=== PATIENT | female | born 1965 | race Caucasian/White ===

== ENCOUNTER → 2016-06-09 | Outpatient (CLI) | payer MEDICARE, BC ==
--- NOTE | 2016-06-10 11:02 | US ---
EXAMINATION TYPE: US pelvis complete transvag DATE OF EXAM: 06/09/2016 4:11 PM COMPARISON: Pelvic ultrasound July 16, 2015 CLINICAL HISTORY: Other Ovarian Cyst R Side N83.291. patient stated has elevated CA125; on blood thin ner for prior PE; had endometrial ablation last year but still has menses; stated had prior uterine f ibroids removed as well as ovarian cyst; TECHNIQUE: Transvaginal (TV) and Transabdominal (TA) pelvic ultrasound. Date of LMP: 05/30/2016 EXAM MEASUREMENTS: Uterus: 10.3 x 6.8 x 5.5 cm Endometrial Stripe: borders are not well identified Right Ovary: 3.0 x 3.4 x 2.0 cm Left Ovary: 1.8 x 1.1 x 2.4 cm TECHNOLOGIST IMPRESSION: wnl 1. Uterus: Anteverted; small Nabothian cysts in CX with largest~ 0.3 x 0.4 x 0.5cm; right mid myom etrial fibroid = 1.0 x 0.9 x 0.5cm; cystic area noted left lateral myometrium = 0.4 x 0.8 x 0.3cm 2. Endometrium: hyperechoic focus noted mid endometrial level = 0.5 x 0.2 x 0.2cm; borders are not w ell identified with endometrial ablation history; however, on image #45 thickened area isoechoic to m yometrium could be current endometrium; 3. Right Ovary: couple of follicles with largest =1.5 x 1.3 x 1.2cm 4. Left Ovary: largest follicle = 0.6 x 0.5 x 0.5cm 5. Bilateral Adnexa: wnl 6. Posterior cul-de-sac: wnl There is 1 cm heterogeneous hypoechoic lesion in uterine myometrium felt to reflect intramural fibroi d. Small endometrial cyst is marked by technologist. Distinct endometrial stripe is not well-visualiz ed after interval ablation. IMPRESSION: No worrisome adnexal or ovarian mass identified. Improvement in heterogeneous prominent e ndometrium after ablation. Slightly bulky uterus remains present.
== END | disposition home or self-care (01) ==
LOC: RADUSWWP 15:28
PROVIDERS: ATTEND Family Medicine
DX: N83.291 Other ovarian cyst, right side (principal)
CPT/HCPCS: 76830; 76856

== ENCOUNTER 2016-06-20 17:52 | Emergency (ER) | payer MEDICARE, BC ==
[2016-06-20 18:24] VITALS: BP 103/62; PULSE 92; RESP 18; TEMP 97.4
--- NOTE | 2016-06-20 19:04 | XR ---
EXAMINATION TYPE: XR foot complete LT DATE OF EXAM: 06/20/2016 6:53 PM COMPARISON: NONE HISTORY: Fell down the steps TECHNIQUE: 3 views FINDINGS: Metatarsals are intact. I see no fracture nor dislocation. IMPRESSION: Negative left foot exam.
--- NOTE | 2016-06-20 19:35 | ED ---
General Adult HPI - General Chief complaint: Extremity Injury, Lower Stated complaint: left foot injury Source: patient Mode of arrival: ambulatory Limitations: no limitations - History of Present Illness Initial comments: This is a 50-year-old female presents with left foot pain started around 8:30 today. Patient states she slipped down 4 steps rolling her left foot. Patient denies any left ankle pain and has been able to ambulate without difficulty. Patient has noticed some mild swelling to the lateral aspect of the left foot. patient Did not hit her head or lose consciousness. Patient denies any back pain, loss of bowel or bladder function, urinary retention or loss of sensation to the saddle area. Patient states she is on an anticoagulant. Patient denies any recent fever, chills, shortness breath, chest pain, abdominal pain, nausea/ vomiting/diarrhea, back pain, hematuria, headache, or visual changes, or any other complaints. - Related Data Home Medications Medication Instructions Recorded Confirmed Baclofen 10 mg PO HS 05/13/15 06/20/16 Cholecalciferol [Vitamin D3] 1,000 unit PO HS 05/13/15 06/20/16 Cyanocobalamin [Vitamin B-12] 1,000 mcg PO HS 05/13/15 06/20/16 Melatonin 30 mg PO HS 05/13/15 06/20/16 Milnacipran HCl [Savella] 100 mg PO BID 05/13/15 06/20/16 Orphenadrine [Norflex] 100 mg PO Q12H 05/13/15 06/20/16 Topiramate [Topamax] 200 mg PO BID 05/13/15 06/20/16 oxyCODONE-APAP 7.5-325MG [Percocet 1 tab PO Q6HR PRN 05/13/15 06/20/16 7.5-325 mg] SUMAtriptan SUCCINATE [Imitrex] 100 mg PO DAILY PRN 09/04/15 06/20/16 Buta/APAP/Caf/Cod 30-275-71-30 1 cap PO BID PRN 01/20/16 06/20/16 [Fioricet w/Cod 88-851-66-30MG] Gabapentin [Neurontin] 100 mg PO HS 01/20/16 06/20/16 Ibuprofen [Motrin] 800 mg PO BID PRN 01/20/16 06/20/16 Apixaban [Eliquis] 2.5 mg PO BID 06/20/16 06/20/16 Azithromycin [Zithromax Z-pack] See Taper PO DAILY 06/20/16 06/20/16 Pravastatin Sodium [Pravachol] 80 mg PO DAILY 06/20/16 06/20/16 Propranolol HCl [Inderal LA] 80 mg PO DAILY 06/20/16 06/20/16 clonazePAM [KlonoPIN] 3 mg PO HS 06/20/16 06/20/16 Allergies Allergy/AdvReac Type Severity Reaction Status Date / Time Penicillins Allergy Rash/Hives Verified 06/20/16 19:08 Review of Systems ROS Statement: Those systems with pertinent positive or pertinent negative responses have been documented in the HPI. ROS Other: All systems not noted in ROS Statement are negative. Past Medical History Past Medical History: Deep Vein Thrombosis (DVT), Fibromyalgia, GERD/Reflux, Hyperlipidemia, Pulmonary Embolus (PE) Additional Past Medical History / Comment(s): migraines, right knee surgery 15 times, MTHFR History of Any Multi-Drug Resistant Organisms: None Reported Past Surgical History: Adenoidectomy, Appendectomy, Orthopedic Surgery, Tonsillectomy Additional Past Surgical History / Comment(s): right knee, ovarian cyst removed , nisssan Past Anesthesia/Blood Transfusion Reactions: No Reported Reaction Past Psychological History: No Psychological Hx Reported Smoking Status: Former smoker Past Alcohol Use History: None Reported Past Drug Use History: None Reported - Past Family History Mother History Unknown: Yes Family Medical History: Diabetes Mellitus General Exam - General Exam Comments Initial Comments: General: The patient is awake and alert, in no distress, and does not appear acutely ill. Neck: The neck is supple, there is no tenderness or JVD. Cardiovascular: There is a regular rate and rhythm. No murmur, rub or gallop is appreciated. Respiratory: Lungs are clear to auscultation, respirations are non-labored, breath sounds are equal. No wheezes, stridor, rales, or rhonchi. Musculoskeletal: There is mild tenderness to palpation over the anterolateral aspect of the left foot with mild swelling and faint ecchymosis. Patient has mild tenderness to the lateral aspect of the left foot. No tenderness to palpation over the lateral or medial malleoli of the left ankle. Full range of motion, strength 5/5 and Sensation intact. Dorsalis pedis pulses 2+ bilaterally. Neurological: A&O x 3. CN II-XII intact, There are no obvious motor or sensory deficits. Coordination appears grossly intact. Speech is normal. Skin: Skin is warm and dry and no rashes or lesions are noted. Psychiatric: Normal mood and affect. Limitations: no limitations Course Vital Signs 06/20/16 18:20 Temperature 97.4 F L Pulse Rate 92 Respiratory 18 Rate Blood Pressure 103/62 O2 Sat by Pulse 98 Oximetry Medical Decision Making - Medical Decision Making Is a 50-year-old female presents with left foot pain that started around 8:30 after rolling her foot on stairs. On physical exam There is mild tenderness to palpation over the anterolateral aspect of the left foot with mild swelling and faint ecchymosis. Patient has mild tenderness to the lateral aspect of the left foot. No tenderness to palpation over the lateral or medial malleoli of the left ankle. Full range of motion, strength 5/5 and Sensation intact. Dorsalis pedis pulses 2+ bilaterally. An x-ray of the left foot was done and reviewed showing: Negative left foot exam. Reported by Dr. Acosta. I discussed the results with patient. I discussed foot sprains. I discussed rest , ice, elevate and use Jaspreet wrap for compression. Patient has crutches at home if needed. I discussed range of motion exercises to the left foot and ankle. I discussed that patient should monitor her swelling since she is on blood thinners but there is only mild swelling right now. I discussed over-the- counter Tylenol as needed for any pain. I discussed return parameters. I discussed If symptoms do not improve in the next 7 days repeat x-rays may be needed to rule out occult fracture. Discussed that patient should follow up with PCP in one to 2 days or return to the [facility] for any worsening symptoms or for any further concerns. Patient was receptive to this plan and patient will be discharged home. I discussed his case with attending physician Dr. Arce who agrees the plan as stated above. Disposition Clinical Impression: Sprain of left foot Disposition: HOME SELF-CARE Condition: Good Instructions: Foot Sprain (ED) Additional Instructions: Please rest, ice, elevate and use the Jaspreet wrap for compression. Please use the crutches you have at home if needed until pain subsides. Otherwise weight bearing as tolerated. If symptoms do not improve in the next 7 days repeat x- rays may be needed to rule out occult fracture. Please use [id number] Tylenol as needed for any pain. Please use medication as discussed. Please follow-up with family doctor in the next 2 days of symptoms have not improved. Please return to emergency room if the symptoms increase or worsen or for any other concerns. Referrals: Jia Buchanan MD [Primary Care Provider] - 1-2 days Time of Disposition: 19:37
== END 2016-06-20 19:41 | disposition home or self-care (01) ==
LOC: EC 17:52
DX: S93.602A Unspecified sprain of left foot, initial encounter (principal); M79.7 Fibromyalgia; K21.9 Gastro-esophageal reflux disease without esophagitis; E78.5 Hyperlipidemia, unspecified; Z86.718 Personal history of other venous thrombosis and embolism; Z87.891 Personal history of nicotine dependence; Z79.899 Other long term (current) drug therapy; Z88.0 Allergy status to penicillin; W10.9XXA Fall (on) (from) unspecified stairs and steps, initial encounter; Y92.009 Unspecified place in unspecified non-institutional (private) residence as the place of occurrence of the external cause; X50.1XXA Overexertion from prolonged static or awkward postures, initial encounter
CPT/HCPCS: 99283

== ENCOUNTER → 2017-01-02 | Outpatient (CLI) | payer MEDICARE, BC ==
--- NOTE | 2017-01-02 14:07 | US ---
EXAMINATION TYPE: US abdomen complete DATE OF EXAM: 01/02/2017 COMPARISON: NONE CLINICAL HISTORY: R10.9 abd pain. Difficult/limited exam due to overlying bowel gas EXAM MEASUREMENTS: Liver Length: 16.3 cm Gallbladder Wall: 0.2 cm CBD: 0.8 cm Spleen: 8.0 cm Right Kidney: 10.7 x 4.9 x 4.2 cm Left Kidney: 11.2 x 6.1 x 5.7 cm Pancreas: Obscured by bowel gas Liver: Limited visualization due to bowel gas, visualized portions show no mass Gallbladder: Multiple echogenic foci visualized Evidence for sonographic Jara's sign: No CBD: Dilated. Distal portion is obscured by bowel gas Spleen: wnl as visualized, limited visualization due to bowel gas Right Kidney: No hydronephrosis or masses seen Left Kidney: No hydronephrosis or masses seen Upper IVC: wnl Abd Aorta: wnl IMPRESSION: 1. Cholelithiasis and enlargement of the common bile duct with no pericholecystic fluid, gallbladder wall thickening, or positive sonographic Jara sign to support the diagnosis of acute cholecystitis. HIDA scan or MRCP could be performed for further evaluation. 2. Nonvisualization of the pancreas due to overlying bowel gas.
--- NOTE | 2017-01-02 14:18 | US ---
EXAMINATION TYPE: US transvaginal DATE OF EXAM: 01/02/2017 COMPARISON: Prior in PACS. CLINICAL HISTORY: R10.9 abd pain. History of ablation. TECHNIQUE: Transvaginal (TV) Date of LMP: 3 months ago EXAM MEASUREMENTS: Uterus: 7.6 x 5.1 x 6.2 cm Endometrial Stripe: 0.6 cm Right Ovary: 2.2 x 1.1 x 1.2 cm Left Ovary: 3.9 x 2.2 x 2.3 cm 1. Uterus: Retroverted Nabothian cysts visualized in cervix. Cystic area visualized in myometrium me asuring 0.6 x 0.3 x 0.5 cm. Heterogeneous area visualized in right myometrium measuring 3.3 x 2.3 x 2 .9 cm, most likely representing intramural leiomyoma 2. Endometrium: Borders are not well visualized, does not appear thickened as seen on previous exam 3. Right Ovary: wnl as visualized, difficult visualization due to bowel gas 4. Left Ovary: Multiple cystic areas visualized, largest measures 2.3 x 1.9 x 2.3 cm 5. Bilateral Adnexa: wnl 6. Posterior cul-de-sac: Small amount of free fluid visualized IMPRESSION: 1. Endometrial borders do not appear well-defined, however no abnormal thickening is appreciated, pos t ablation. 2. Dominant left ovarian follicle measuring 2.3 cm appearing simple. 3. Probable 3.3 cm intramural leiomyoma.
--- NOTE | 2017-01-02 15:06 | NM ---
EXAMINATION TYPE: NM hepatobiliary w EF DATE OF EXAM: 01/02/2017 COMPARISON: Abdominal ultrasound dated 12/25/2016 HISTORY: Abdominal pain and decreased appetite. Constipation, diarrhea and history of ulcers. TECHNIQUE: After the intravenous administration of 5.16 mCi Tc 99m Mebrofenin hepatobiliary scintigra phy is performed. Immediate images post injection. FINDINGS: There is satisfactory initial accumulation of tracer by the liver. The gallbladder is visualized wit hin 14 minutes. The small bowel activity is noted within 60 minutes. At one hour 8 ounces of oral e nsure plus is given to mimic CCK and gallbladder ejection fraction is calculated at 85 %, in the norm al range. Therefore there is no scintigraphic evidence of cystic or common bile duct obstruction to suggest acute cholecystitis or gallbladder dyskinesia. IMPRESSION: 1. No evidence of acute cholecystitis. 2. No evidence of biliary dyskinesia with an ejection fraction of 85%.
== END | disposition home or self-care (01) ==
LOC: RADUSMAIN 11:41
PROVIDERS: ATTEND Family Medicine
DX: K80.20 Calculus of gallbladder without cholecystitis without obstruction (principal); K83.8 Other specified diseases of biliary tract; R97.0 Elevated carcinoembryonic antigen [CEA]
CPT/HCPCS: 76700; 76830; 78226; A9537

== ENCOUNTER 2017-02-08 06:59 | Day surgery (SDC) | payer MEDICARE, BC ==
[2017-02-07 09:23] VITALS: BMI 32.5
[~2017-02-08 06:59] MED LIST: DEXAMETHASONE SOD PHOSPHATE 10 MG/ML 1 ML VIAL IV ONE; HEPARIN SODIUM,PORCINE 5,000 UNIT/ML 1 ML VIAL SQ ONE; LACTATED RINGERS 1,000 ML IV SCH; LIDOCAINE 1% 20 ML VIAL (10MG/ML) FOR IV START INTRADERMA PRN; ONDANSETRON 4 MG/2 ML VIAL IVP ONE; SCOPOLAMINE 1.5MG/72HR PATCH TRANSDERM ONE; ceFAZolin 2 GM in SODIUM CHLORIDE 0.9% 100 ML IVPB ONE
[2017-02-08 07:24] VITALS: RESP 16
[2017-02-08] MEDS ORDERED: BUPIVACAINE (PF) 0.25% 30 ML VIAL SQ ONE ×2 (08:22)
[2017-02-08] MEDS ORDERED: fentaNYL (PF) 50 MCG/ML 2 ML AMP ONE (08:26)
[2017-02-08] MEDS ORDERED: SUCCINYLCHOLINE CHLORIDE 100 MG/5 ML SYR IV ONE (08:26)
[2017-02-08] MEDS ORDERED: PROPOFOL 10 MG/ML 20 ML VIAL IV ONE (08:26)
[2017-02-08] MEDS ORDERED: HYDROmorphone (PF) 1 MG/ML ONE (08:26)
[2017-02-08] MEDS ORDERED: ROCURONIUM BROMIDE 10 MG/ML 10 ML VIAL IV ONE (08:26)
[2017-02-08] MEDS ORDERED: LIDOCAINE 1% INJ 10MG/ML (20 ML MDV) ONE (08:26)
[2017-02-08] MEDS ORDERED: LACTATED RINGERS 1,000 ML IV ONE ×2 (08:50)
[2017-02-08] MEDS ORDERED: NALOXONE 0.4 MG/ML 1 ML VIAL IV PRN (09:23)
[2017-02-08] MEDS ORDERED: HYDROcodone/APAP 5-325MG 1 EACH TAB PO PRN (09:23)
[2017-02-08 09:26] VITALS: TEMP 97.5
--- NOTE | 2017-02-08 09:31 | P.OP ---
Date of Procedure: 02/08/17 Procedure(s) Performed: PREOPERATIVE DIAGNOSIS: Chronic cholecystitis POSTOPERATIVE DIAGNOSIS: Same with intra-abdominal adhesions PROCEDURE: Laparoscopic cholecystectomy with lysis of adhesions SURGEON: Judy EBL: Minimal see anesthesia record ANESTHESIA: Gen. COMPLICATIONS: None OPERATIVE PROCEDURE: The patient was brought and placed on the operating room table in the supine position. The patient was placed under general anesthesia at that time. The abdomen was prepped and draped in the usual sterile fashion. A small vertical infraumbilical incision was made. The fascia was grasped with the Samuel forceps. The fascia was retracted anteriorly. The Veress needle was advanced into the peritoneal cavity. The saline drop test was normal. Insufflation took place up to 15 mmHg. A 5 mm optical trocar was advanced and the peritoneal cavity. The patient had adhesions between the omentum and the abdominal wall. I was unable to visualize the upper abdomen because of the adhesions. An additional 5 mm trocar was placed in the lateral aspect of the left upper quadrant and the adhesions to the omentum were lysed using a combination of sharp dissection and cautery. I was then able to visualize the right upper quadrant. The gallbladder appeared mildly inflamed. I did use the left-sided trocar to inspect the pelvis. The right and left ovaries had some cysts associated with the fallopian tubes however I could not visualize any definite masses. Pictures were taken for gynecology to review. These were provided to the family following the procedure. There was no ascitic fluid within the abdomen there was no peritoneal implants seen. 2 additional 5 mm trochars were placed in the right upper quadrant under direct visualization. A 10 mm trocar was advanced into the epigastric incision site. The gallbladder was retracted superiorly and laterally. The peritoneum overlying the infundibulum was bluntly dissected. The patient's cystic duct was visualized. The junction between the cystic duct common and hepatic duct was identified. The cystic duct was then divided after placement of 3 10 mm clips on the patient's side and one on the specimen side. The cystic artery was identified and clipped as well. A small vessel was seen along the gallbladder fossa and clipped as well. The gallbladder was then removed from the liver bed using electrocautery. The gallbladder was then removed from the epigastric trocar site with an Endo Catch bag. The gallbladder fossa was irrigated with saline. There was no evidence of any bleeding or biliary drainage seen. The trochars were then removed. The fascia at the 10 millimeter site was closed using a Сергей-Makenzie 0 Vicryl stitch. The skin at all 5 sites was closed using a 4-0 Monocryl stitch. At the end of this procedure the sponge and needle counts were correct. DISPOSITION: Stable to the recovery room
[2017-02-08] MEDS: HYDROmorphone 0.5 MG/0.5 ML SYRINGE IVP PRN ×3 (09:32→09:46)
[2017-02-08] MEDS ORDERED: HYDROcodone/APAP 5-325MG 1 EACH TAB PO ONE (10:23)
[2017-02-08 10:36] VITALS: BP 122/73; PULSE 57
== END 2017-02-08 11:14 | disposition home or self-care (01) ==
LOC: OR 06:59
PROVIDERS: ATTEND Surgery
DX: K81.1 Chronic cholecystitis (principal); K66.0 Peritoneal adhesions (postprocedural) (postinfection); E78.5 Hyperlipidemia, unspecified; K21.9 Gastro-esophageal reflux disease without esophagitis; M79.7 Fibromyalgia; D68.2 Hereditary deficiency of other clotting factors; Z79.02 Long term (current) use of antithrombotics/antiplatelets; Z79.899 Other long term (current) drug therapy; Z86.711 Personal history of pulmonary embolism; Z86.718 Personal history of other venous thrombosis and embolism; Z88.0 Allergy status to penicillin
CPT/HCPCS: 47562; 49329; 81025; 88304; J1644; J1100; J0690; J2405; J2001; J3010; J1170 ×2; J0330; J2704

== ENCOUNTER → 2017-05-23 | Outpatient (CLI) | payer MEDICARE, BC ==
[2017-05-23 13:29] LABS: Basophils % (A) 1 %; Eosinophils # (A) 0.2 k/uL (0-0.7); Eosinophils % (A) 3 %; HCT 45.9 % (34.0-46.0); HGB 14.4 gm/dL (11.4-16.0); Lymphocytes # (A) 2.3 k/uL (1.0-4.8); Lymphocytes % (A) 36 %; MCH 30.9 pg (25.0-35.0); MCHC 31.4 g/dL (31.0-37.0); MCV 98.3 fL (80.0-100.0); Monocytes # (A) 0.2 k/uL (0-1.0); Monocytes % (A) 3 %; Neutrophils # (A) 3.6 k/uL (1.3-7.7); Neutrophils % (A) 57 %; Platelet Count 319 k/uL (150-450); RBC 4.67 m/uL (3.80-5.40); RDW 14.1 % (11.5-15.5); WBC 6.4 k/uL (3.8-10.6)
[2017-05-23 13:54] LABS: Anion Gap 10 mmol/L; Blood Urea Nitrogen 14 mg/dL (7-17); Carbon Dioxide 24 mmol/L (22-30); Chloride 107 mmol/L (98-107); Glucose 130 mg/dL (74-99); Potassium 4.1 mmol/L (3.5-5.1); Sodium 141 mmol/L (137-145)
== END | disposition home or self-care (01) ==
LOC: LABPAT 12:18
PROVIDERS: ATTEND Obstetrics & Gynecology
DX: Z01.812 Encounter for preprocedural laboratory examination (principal); R10.2 Pelvic and perineal pain; N93.8 Other specified abnormal uterine and vaginal bleeding; Z79.899 Other long term (current) drug therapy
CPT/HCPCS: 36415; 80051; 82565; 82947; 84520; 85025; 86850; 86900; 86901; 87086

== ENCOUNTER → 2017-05-23 | Outpatient (CLI) | payer MEDICARE, BC ==
--- NOTE | 2017-05-23 13:39 | XR ---
EXAMINATION TYPE: XR chest 2V DATE OF EXAM: 05/23/2017 COMPARISON: 05/13/2015 HISTORY: Shortness of breath TECHNIQUE: Frontal and lateral views of the chest are obtained. FINDINGS: Scattered senescent parenchymal changes noted. No evidence for infiltrate. No evidence for atelectasis. Heart size is stable. Mediastinal structures are stable and grossly unremarkable. No evidence for hilar prominence. Degenerative changes dorsal spine. IMPRESSION: 1. No evidence for acute pulmonary disease.
== END | disposition home or self-care (01) ==
LOC: RADXRMAIN 13:21
PROVIDERS: ATTEND Family Medicine
DX: Z01.818 Encounter for other preprocedural examination (principal)
CPT/HCPCS: 71046

== ENCOUNTER 2017-05-29 05:49 | Day surgery (SDC) | payer MEDICARE, BC ==
[2017-05-22 14:07] VITALS: BMI 31.0
[~2017-05-29 05:49] MED LIST changes: -LIDOCAINE 1% 20 ML VIAL (10MG/ML) FOR IV START INTRADERMA PRN; +MIDAZOLAM 2 MG/2 ML VIAL IV PRN; +MORPHINE SULFATE 4 MG/ML SYRINGE IV PRN; -ONDANSETRON 4 MG/2 ML VIAL IVP ONE; -ceFAZolin 2 GM in SODIUM CHLORIDE 0.9% 100 ML IVPB ONE; +ceFAZolin IN SWFI 2 GM/20 ML SYRINGE IVP ONE
[2017-05-29] MEDS ORDERED: LIDOCAINE 1% 20 ML VIAL (10MG/ML) FOR IV START INTRADERMA ONE (07:00)
[2017-05-29] MEDS: ONDANSETRON 4 MG/2 ML VIAL IVP ONE ×2 (07:00→10:20)
[2017-05-29 07:13] LABS: INR 1.1 (<1.2); Prothrombin Time 10.5 sec (9.0-12.0)
--- NOTE | 2017-05-29 07:27 | P.HPOB ---
History of Present Illness H&P Date: 05/29/17 Chief Complaint: Pelvic pain and dysfunctional uterine bleeding This is a 51-year-old woman with a history of worsening on pelvic pain and dysfunctional uterine bleeding status post failed endometrial ablation. She desires definitive surgical management. She also has a history of ovarian cysts. On pelvic ultrasound her uterus is slightly enlarged and findings consistent with adenomyosis Review of Systems Constitutional: Denies chills, Denies fever Cardiovascular: Denies chest pain, Denies shortness of breath Respiratory: Denies cough Gastrointestinal: Reports abdominal pain, Denies BRBPR Genitourinary: Reports abnormal vaginal bleeding, Reports pelvic pain Menstruation: Reports as per HPI Musculoskeletal: Reports low back pain Integumentary: Denies rash Neurological: Denies headaches Psychiatric: Denies anxiety, Denies depression Past Medical History Past Medical History: Blood Disorder, Deep Vein Thrombosis (DVT), Fibromyalgia, GERD/Reflux, Hyperlipidemia, Osteoarthritis (OA), Pulmonary Embolus (PE) Additional Past Medical History / Comment(s): migraines, Factor 5 Leiden, barretts esophagus, IBS-constipation/diarrhea, History of Any Multi-Drug Resistant Organisms: None Reported Past Surgical History: Adenoidectomy, Appendectomy, Cholecystectomy, Joint Replacement, Orthopedic Surgery, Tonsillectomy, Tubal Ligation, Uterine Ablation Additional Past Surgical History / Comment(s): shelby fundoplication "wrap", rt knee replacement, left breast lumpectomy, cysts removed from ovaries, mult esvin knee surgeries, Past Anesthesia/Blood Transfusion Reactions: No Reported Reaction Smoking Status: Former smoker - Past Family History Mother History Unknown: Yes Family Medical History: No Reported History Medications and Allergies Home Medications Medication Instructions Recorded Confirmed Type Baclofen 10 mg PO HS 05/13/15 05/22/17 History Cholecalciferol [Vitamin D3] 1,000 unit PO HS 05/13/15 05/22/17 History Cyanocobalamin [Vitamin B-12] 1,000 mcg PO HS 05/13/15 05/22/17 History Melatonin 30 mg PO HS 05/13/15 05/22/17 History Orphenadrine [Norflex] 100 mg PO Q12H 05/13/15 05/22/17 History Topiramate [Topamax] 200 mg PO BID 05/13/15 05/22/17 History oxyCODONE-APAP 7.5-325MG [Percocet 1 tab PO Q6HR PRN 05/13/15 05/22/17 History 7.5-325 mg] SUMAtriptan SUCCINATE [Imitrex] 100 mg PO DAILY PRN 09/04/15 05/29/17 History Buta/APAP/Caf/Cod 15-362-85-30 1 cap PO BID PRN 01/20/16 05/29/17 History [Fioricet w/Cod 30-409-75-30MG] Ibuprofen [Motrin] 800 mg PO BID PRN 01/20/16 05/22/17 History Apixaban [Eliquis] 2.5 mg PO BID 06/20/16 05/22/17 History Pravastatin Sodium [Pravachol] 80 mg PO HS 06/20/16 05/22/17 History clonazePAM [KlonoPIN] 3 mg PO HS 06/20/16 05/22/17 History Omeprazole [PriLOSEC] 20 mg PO AC-BRKFST 02/07/17 05/22/17 History Propranolol HCl [Inderal] 60 mg PO BID 02/07/17 05/22/17 History Enoxaparin [Lovenox] 60 mg SQ DAILY 05/23/17 05/23/17 History Allergies Allergy/AdvReac Type Severity Reaction Status Date / Time Penicillins Allergy Rash/Hives Verified 05/29/17 06:18 Exam - Vital Signs Vital signs: Vital Signs Temp Pulse Resp BP Pulse Ox 05/29/17 07:00 97.4 F L 66 16 119/73 100 This is a pleasant female in no apparent distress. HEENT exam is unremarkable with no palpable lymphadenopathy or thyromegaly. The lungs are clear to auscultation bilaterally and the heart is a regular rate and rhythm. The abdomen is soft and nontender with scarring consistent with her surgical history. Pelvic examination was not performed at this time however in the past is consistent with an enlarged, 6-8 week size uterus with generalized tenderness. No adnexal abnormalities appreciated. Neurologic exam she is grossly intact with no focal deficits. Assessment and Plan (1) Dysfunctional uterine bleeding Current Visit: Yes Status: Acute Code(s): N93.8 - OTHER SPECIFIED ABNORMAL UTERINE AND VAGINAL BLEEDING SNOMED Code(s): 42174011 (2) Pelvic pain Current Visit: Yes Status: Acute Code(s): R10.2 - PELVIC AND PERINEAL PAIN SNOMED Code(s): 40700622 Plan: This is a 51-year-old woman with dysfunctional uterine bleeding and pelvic pain who is scheduled to undergo robotic-assisted laparoscopic assisted vaginal hysterectomy and bilateral salpingo-oophorectomy and cystoscopy. This procedure has been reviewed in detail in the office on multiple occasions. Risks include but are not limited to bleeding, transfusion, laparotomy, infection, damage to bowel, bladder, ureters and/or other pelvic or abdominal structures. Anesthetic complications as well as increased risk of DVT and or PE have been reviewed. She did receive preoperative clearance from Dr. Velasquez. She has transitioned to Lovenox her last dose of which was yesterday. She will receive DVT prophylaxis intraoperatively as well and Lovenox will be resumed postoperatively.
[2017-05-29] MEDS ORDERED: ePHEDrine 50 MG/ML 1 ML AMP ONE (07:34)
[2017-05-29] MEDS ORDERED: PROPOFOL 10 MG/ML 20 ML VIAL IV ONE (07:34)
[2017-05-29] MEDS ORDERED: GLYCOPYRROLATE 0.2 MG/ML 2 ML VIAL ONE (07:34)
[2017-05-29] MEDS ORDERED: MIDAZOLAM 2 MG/2 ML VIAL ONE (07:34)
[2017-05-29] MEDS ORDERED: LIDOCAINE 1% INJ 10MG/ML (20 ML MDV) ONE (07:34)
[2017-05-29] MEDS ORDERED: fentaNYL (PF) 50 MCG/ML 2 ML AMP ONE (07:34)
[2017-05-29] MEDS ORDERED: ROCURONIUM BROMIDE 10 MG/ML 10 ML VIAL IV ONE (07:34)
[2017-05-29] MEDS ORDERED: NEOSTIGMINE 1 MG/ML 10 ML VIAL ONE (07:34)
[2017-05-29] MEDS ORDERED: PHENYLEPHRINE-0.9% NACL SYG 1 MG/10 ML SYRINGE ONE (07:34)
[2017-05-29] MEDS ORDERED: SUCCINYLCHOLINE CHLORIDE 100 MG/5 ML SYR IV ONE (07:34)
[2017-05-29] MEDS ORDERED: LACTATED RINGERS 1,000 ML IV ONE ×3 (07:45→09:46)
[2017-05-29] MEDS ORDERED: BUPIVACAIN-EPI 0.5%-1:200,000 30 ML VIAL SQ ONE (08:26)
--- NOTE | 2017-05-29 09:57 | P.OP ---
Date of Procedure: 05/29/17 Preoperative Diagnosis: Dysfunctional uterine bleeding and pelvic pain Postoperative Diagnosis: Same Procedure(s) Performed: Robotic-assisted laparoscopic assisted vaginal hysterectomy, bilateral salpingo- oophorectomy, cystoscopy Anesthesia: ROSEANN Surgeon: Crystal Cox Hvac Refrigeration Technician #1: Akiko Elliott Estimated Blood Loss (ml): 100 IV fluids (ml): 1,000 Urine output (ml): 170 Pathology: other (Uterus, bilateral fallopian tubes, bilateral ovaries) Condition: stable Disposition: PACU Operative Findings: Enlarged uterus, normal-appearing bilateral fallopian tubes and ovaries. Grossly normal pelvic anatomy Description of Procedure: After the patient and her family were met in the preoperative holding area and all questions were answered, she was taken to the operating room where anesthetic was administered without incident. She was in positioned, prepped and draped in the dorsal lithotomy position. Exam under anesthetic was undertaken and a large uterus was palpable. It did feel mobile. The Beatty catheter was placed in the bladder. Weighted speculum was placed in the vagina and the cervix was grasped anteriorly with a single-tooth tenaculum. The uterus was sounded to 12 cm and was sequentially dilated to allow for placement of the uterine manipulator. The uterine manipulator was inserted per protocol. Attention was then turned to the abdomen. A 5 mm supraumbilical skin incision was made. The anterior abdominal wall was then elevated. Very's needle was inserted and saline drop test indicated intraperitoneal placement. Initial filling pressure was 3 mm. The abdomen was insufflated to a total filling pressure of 15 mm without difficulty. The Veress needle was removed and blade less optical trocar was then utilized to introduce the camera into the abdomen. Intraperitoneal placement was confirmed. The patient was then placed in Trendelenburg. Under direct visualization 1 right and to left accessory da Ken ports were placed in usual fashion. The umbilical port was replaced with a da Ken 8 mm port as well. The robot was then docked parallel to the table in the usual fashion. Instruments were placed with a bipolar [place] and then #2 graspers and the monopolar ken and the #1 port. The uterus was elevated and was noted to be freely mobile in the pelvis. All appearing bilateral fallopian tubes and ovaries were noted. Evidence of tubal ligation with fallopian rings was noted. The course of the right and left ureters were visualized. Bipolar electrocautery was then utilized to sequentially cauterized and cut the infundibulopelvic ligament on the right. The round ligament was then sequentially cauterized and cut on the right. The anterior leaf of the broad ligament was then incised down to the level of the bladder. The broad ligament was further dissected sharply and with electrocautery. Similarly on the left side the left infundibulopelvic ligament was sequentially cauterized and cut the left round ligament was sequentially cauterized and cut the anterior leaf of the left broad ligament was then entered and incised meeting the initial incision anteriorly at the bladder. The bladder was then dissected anteriorly away from the underlying cervical tissue. The uterine vasculature was then skeletonized on both the left and right side and cauterized using bipolar electrocautery. A Ray-Shelby was introduced into the pelvis which was utilized to further bluntly advanced the bladder anteriorly. Additional cautery was utilized to obtain hemostasis at the level of the uterine vascularity. Anterior colpotomy was then made and the uterine manipulator cuff was visualized. Electrocautery was then utilized to carry the colpotomy around circumferentially with good visualization of the vaginal cuff throughout. Sponges were placed in the vagina to help maintain pneumoperitoneum throughout. Once the colpotomy was complete the uterus was then delivered into the vagina without difficulty. Self locking strata fix suture was then introduced after instruments were changed out. Grasper as well as cut sutures were introduced for this portion of the procedure. The cuff was then closed in a running fashion. This area was then copiously suction irrigated and was observed. Hemostasis was noted. FloSeal was placed over the surgical sites for further hemostasis. The course of the right and left ureter were again positively identified and noted to be peristalsing. Of note the Ray- Shelby sponge was removed through the vagina prior to closure of the colpotomy. Attention was then turned to cystoscopy. The cystoscope was introduced into the bladder Beatty catheter was removed. suture material was noted in the bladder. The right and left ureteral orifices were visualized and both noted to freely spell urine under direct visualization. The cystoscope was then removed the Beatty catheter was replaced. There was no active vaginal bleeding noted at this time. The skin incisions were closed after the robot was undocked in the usual fashion. Marcaine was infused in each of the skin incisions and dressings were applied. All counts reported to me as correct by the operating room staff and the patient was awoken from anesthetic without incident. She was transported to recovery area in stable condition.
[2017-05-29] MEDS: HYDROmorphone 2 MG/ML 1 ML SYRINGE IVP ONE ×4 (10:15→10:42)
[2017-05-29] MEDS ORDERED: KETOROLAC 30 MG/ML 1 ML VIAL IVP ONE (10:20)
[2017-05-29] MEDS ORDERED: METOCLOPRAMIDE 5 MG/ML 2 ML VIAL IVP PRN (12:33)
[2017-05-29] MEDS ORDERED: IBUPROFEN 600 MG TAB PO PRN (12:33)
[2017-05-29] MEDS ORDERED: diphenhydrAMINE 50 MG/ML 1 ML VIAL IVP PRN (12:33)
[2017-05-29] MEDS ORDERED: ONDANSETRON 4 MG/2 ML VIAL IVP PRN (12:33)
[2017-05-29] MEDS ORDERED: SIMETHICONE 80 MG CHEWABLE PO PRN (12:36)
[2017-05-29] MEDS: HYDROmorphone 0.5 MG/0.5 ML SYRINGE IVP PRN ×2 (14:01→22:52)
[2017-05-29] MEDS: LACTATED RINGERS 1,000 ML IV SCH (15:35)
[2017-05-29] MEDS: oxyCODONE-APAP 10-325MG 1 EACH TAB PO PRN (18:20)
[2017-05-29] MEDS ORDERED: clonazePAM 1 MG TAB PO SCH (21:00)
[2017-05-29] MEDS: SENNOSIDES-DOCUSATE SODIUM 1 EACH TAB PO SCH (21:19)
[2017-05-29] MEDS: TOPIRAMATE 100 MG TAB PO SCH (21:19)
[2017-05-30] MEDS: HYDROmorphone 0.5 MG/0.5 ML SYRINGE IVP PRN (04:15)
[2017-05-30] MEDS: LACTATED RINGERS 1,000 ML IV SCH (06:47)
[2017-05-30] MEDS ORDERED: PANTOPRAZOLE 40 MG TABLET PO SCH (07:30)
[2017-05-30] MEDS ORDERED: BUTALB/APAP/CAFF 50-325-40MG TAB PO STA (08:08)
--- NOTE | 2017-05-30 08:23 | P.DS ---
Providers Expected date of discharge: 05/30/17 Attending physician: Crystal Cox Primary care physician: Jia Buchanan - Gabrielle Diagnosis(es) (1) Dysfunctional uterine bleeding Current Visit: Yes Status: Acute (2) Pelvic pain Current Visit: Yes Status: Acute Hospital Course: This is a 51-year-old woman with a history of dysfunctional uterine bleeding and pelvic pain who underwent a robotic-assisted laparoscopic assisted vaginal hysterectomy and bilateral salpingo-oophorectomy on 05/29/2017. Findings at the time of surgery were significant for an enlarged uterus and normal- appearing bilateral ovaries. Please see the operative report for details. Her postoperative course was unremarkable. By the evening of postoperative day 0 she was able to void spontaneously with the Beatty catheter removed. She was able to ambulate without difficulty or dizziness. She did develop a migraine headache on throughout the night and by the morning of postoperative day #1 was complaining of this. Her typical antimigraine medications were then ordered. Otherwise her vital signs were stable. On exam her abdomen was soft and minimally tender without distention. Her incision sites appeared well healing and she had scant vaginal bleeding. She was tolerating a general diet. She was therefore discharged home pending resolution of her headache and postoperative labs. She will resume her Lovenox and transition to eloquist per her primary care physician's instructions after 3 days. Procedures: Robotic-assisted laparoscopic assisted vaginal hysterectomy, bilateral salpingo- oophorectomy, cystoscopy Patient Condition at Discharge: Good Plan - Discharge Summary Discharge Rx Participant: Yes New Discharge Prescriptions: No Action Orphenadrine [Norflex] 100 mg PO Q12H Cholecalciferol [Vitamin D3] 1,000 unit PO HS Topiramate [Topamax] 200 mg PO BID Baclofen 10 mg PO HS oxyCODONE-APAP 7.5-325MG [Percocet 7.5-325 mg] 1 tab PO Q6HR PRN PRN Reason: Pain Melatonin 30 mg PO HS Cyanocobalamin [Vitamin B-12] 1,000 mcg PO HS SUMAtriptan SUCCINATE [Imitrex] 100 mg PO DAILY PRN PRN Reason: Migraine Headache Buta/APAP/Caf/Cod [id number] [Fioricet w/Cod 80-117-42-30MG] 1 cap PO BID PRN PRN Reason: Migraine Headache Ibuprofen [Motrin] 800 mg PO BID PRN PRN Reason: Pain Apixaban [Eliquis] 2.5 mg PO BID clonazePAM [KlonoPIN] 3 mg PO HS Pravastatin Sodium [Pravachol] 80 mg PO HS Omeprazole [PriLOSEC] 20 mg PO AC-BRKFST Propranolol HCl [Inderal] 60 mg PO BID Enoxaparin [Lovenox] 60 mg SQ DAILY Orphenadrine Citrate 100 mg BID PRN PRN Reason: pain Discharge Medication List Baclofen 10 mg PO HS 05/13/15 [History] Cholecalciferol [Vitamin D3] 1,000 unit PO HS 05/13/15 [History] Cyanocobalamin [Vitamin B-12] 1,000 mcg PO HS 05/13/15 [History] Melatonin 30 mg PO HS 05/13/15 [History] Orphenadrine [Norflex] 100 mg PO Q12H 05/13/15 [History] Topiramate [Topamax] 200 mg PO BID 05/13/15 [History] oxyCODONE-APAP 7.5-325MG [Percocet 7.5-325 mg] 1 tab PO Q6HR PRN 05/13/15 [ History] SUMAtriptan SUCCINATE [Imitrex] 100 mg PO DAILY PRN 09/04/15 [History] Buta/APAP/Caf/Cod [id number] [Fioricet w/Cod 88-362-21-30MG] 1 cap PO BID PRN 01/20/16 [History] Ibuprofen [Motrin] 800 mg PO BID PRN 01/20/16 [History] Apixaban [Eliquis] 2.5 mg PO BID 06/20/16 [History] Pravastatin Sodium [Pravachol] 80 mg PO HS 06/20/16 [History] clonazePAM [KlonoPIN] 3 mg PO HS 06/20/16 [History] Omeprazole [PriLOSEC] 20 mg PO AC-BRKFST 02/07/17 [History] Propranolol HCl [Inderal] 60 mg PO BID 02/07/17 [History] Enoxaparin [Lovenox] 60 mg SQ DAILY 05/23/17 [History] Orphenadrine Citrate 100 mg BID PRN 05/29/17 [History] Follow up Appointment(s)/Referral(s): Crystal Cox MD [STAFF PHYSICIAN] - 2 Weeks Activity/Diet/Wound Care/Special Instructions: Return to the office in 2 weeks postoperatively or sooner with any concerning signs or symptoms including severe abdominal pain, vaginal bleeding, fever greater than 100.5, signs of redness or drainage from incision sites, redness or swelling of the lower extremities. Take Lovenox as directed for 3 days then resume routine Elaquis dose. Discharge Disposition: HOME SELF-CARE
[2017-05-30 08:29] LABS: Basophils % (A) 0 %; Eosinophils # (A) 0.4 k/uL (0-0.7); Eosinophils % (A) 4 %; HCT 36.9 % (34.0-46.0); HGB 12.1 gm/dL (11.4-16.0); Lymphocytes # (A) 1.8 k/uL (1.0-4.8); Lymphocytes % (A) 17 %; MCH 32.3 pg (25.0-35.0); MCHC 32.8 g/dL (31.0-37.0); MCV 98.3 fL (80.0-100.0); Mean Platelet Volume 7.3; Monocytes # (A) 0.4 k/uL (0-1.0); Monocytes % (A) 4 %; Neutrophils # (A) 7.5 k/uL (1.3-7.7); Neutrophils % (A) 74 %; Platelet Count 247 k/uL (150-450); RBC 3.76 m/uL (3.80-5.40); RDW 12.7 % (11.5-15.5); WBC 10.2 k/uL (3.8-10.6)
[2017-05-30] MEDS: TOPIRAMATE 100 MG TAB PO SCH (08:42)
[2017-05-30] MEDS: SENNOSIDES-DOCUSATE SODIUM 1 EACH TAB PO SCH ×2 (08:42→08:45)
[2017-05-30] MEDS ORDERED: PROPRANOLOL 20 MG TAB PO SCH (09:00)
[2017-05-30] MEDS ORDERED: ACETAMINOPHEN TAB 325 MG TAB PO PRN (09:59)
[2017-05-30 10:14] VITALS: BP 107/63; PULSE 88; RESP 18; TEMP 99
[2017-05-30] MEDS: oxyCODONE-APAP 10-325MG 1 EACH TAB PO PRN (10:24)
== END 2017-05-30 14:30 | disposition home or self-care (01) ==
LOC: OR 05:49 → 6PED 09:57 → 4FBP 22:05 → OR 05-30 14:30
PROVIDERS: ATTEND Obstetrics & Gynecology
DX: N72 Inflammatory disease of cervix uteri (principal); N88.8 Other specified noninflammatory disorders of cervix uteri; N84.1 Polyp of cervix uteri; N80.0 Endometriosis of uterus; D25.2 Subserosal leiomyoma of uterus; N83.8 Other noninflammatory disorders of ovary, fallopian tube and broad ligament; N83.202 Unspecified ovarian cyst, left side; D68.51 Activated protein C resistance; Z86.718 Personal history of other venous thrombosis and embolism; Z79.01 Long term (current) use of anticoagulants; K58.9 Irritable bowel syndrome, unspecified; M79.7 Fibromyalgia; K21.9 Gastro-esophageal reflux disease without esophagitis; E78.5 Hyperlipidemia, unspecified; M19.90 Unspecified osteoarthritis, unspecified site; Z86.711 Personal history of pulmonary embolism; K22.70 Barrett's esophagus without dysplasia; Z87.891 Personal history of nicotine dependence; Z79.2 Long term (current) use of antibiotics; Z79.02 Long term (current) use of antithrombotics/antiplatelets; Z79.899 Other long term (current) drug therapy; Z88.0 Allergy status to penicillin
CPT/HCPCS: 81025; 85025; 85610; 88307; 58552; C1762; J1170 ×3; J1644; J1100; J0690; J2405; J1885; 86850; 86900; 86901

== ENCOUNTER → 2017-10-18 | Outpatient (CLI) | payer MEDICARE, BC ==
[2017-10-18 13:54] LABS: Basophils % (A) 1 %; Eosinophils # (A) 0.1 k/uL (0-0.7); Eosinophils % (A) 2 %; HCT 45.5 % (34.0-46.0); HGB 15.2 gm/dL (11.4-16.0); Lymphocytes # (A) 1.6 k/uL (1.0-4.8); Lymphocytes % (A) 27 %; MCH 31.8 pg (25.0-35.0); MCHC 33.4 g/dL (31.0-37.0); MCV 95.1 fL (80.0-100.0); Mean Platelet Volume 7.7; Monocytes # (A) 0.2 k/uL (0-1.0); Monocytes % (A) 4 %; Neutrophils # (A) 3.8 k/uL (1.3-7.7); Neutrophils % (A) 65 %; Platelet Count 254 k/uL (150-450); RBC 4.78 m/uL (3.80-5.40); RDW 13.2 % (11.5-15.5); WBC 5.8 k/uL (3.8-10.6)
[2017-10-18 14:22] LABS: ALT 38 U/L (9-52); AST 23 U/L (14-36); Albumin 4.2 g/dL (3.5-5.0); Alkaline Phosphatase 63 U/L (38-126); Anion Gap 15 mmol/L; Blood Urea Nitrogen 13 mg/dL (7-17); Calcium 9.6 mg/dL (8.4-10.2); Carbon Dioxide 23 mmol/L (22-30); Chloride 107 mmol/L (98-107); Cholesterol 140 mg/dL (<200); Glucose 126 mg/dL (74-99); HDL Cholesterol 50 mg/dL (40-60); LDL Cholesterol,Calculated 64 mg/dL (0-99); Potassium 4.3 mmol/L (3.5-5.1); Sodium 145 mmol/L (137-145); Total Bilirubin 0.3 mg/dL (0.2-1.3); Total Protein 7.1 g/dL (6.3-8.2); Triglycerides 131 mg/dL (<150); Uric Acid 3.4 mg/dL (3.7-7.4)
[2017-10-18 14:33] LABS: T4, Free (Free Thyroxine) 1.42 ng/dL (0.78-2.19)
[2017-10-18 15:18] LABS: Erythrocyte Sedimentation Rate 8 mm/hr (0-20)
[2017-10-18 15:36] LABS: C Reactive Protein <5.0 mg/L (<10.0)
[2017-10-18 18:28] LABS: Vitamin D 25 Hydroxy 22.2 ng/mL (30.0-100.0)
[2017-10-18 19:50] LABS: Hemoglobin A1C 6.4 % (4.0-6.0)
== END | disposition home or self-care (01) ==
LOC: LABWHC1 12:37
PROVIDERS: ATTEND Family Medicine
DX: E78.5 Hyperlipidemia, unspecified (principal); R73.03 Prediabetes; M25.561 Pain in right knee; Z96.651 Presence of right artificial knee joint
CPT/HCPCS: 36415; 80053; 80061; 82306; 82607; 83036; 84439; 84443; 84550; 85025; 85652; 86140

== ENCOUNTER → 2017-11-20 | Outpatient (CLI) | payer MEDICARE, BC ==
--- NOTE | 2017-11-21 00:01 | MR ---
EXAMINATION TYPE: MR angio chest wo/w con DATE OF EXAM: 11/20/2017 COMPARISON: None HISTORY: Aortic arch syndrome CONTRAST: Standard multiplanar, multisequence MRI departmental protocol utilizing 10 mL intravenous gadolinium contrast. FINDINGS: Thoracic aorta has normal diameter. There is no evidence of stenosis. There is normal branc katiuska pattern of the great vessels on the aortic arch. There is no evidence of any stenotic lesion. Th ere is no evidence of aneurysm. Innominate artery left common carotid artery and left subclavian camron ry appear normal. The remainder of the exam is unremarkable. IMPRESSION: Normal MR angiogram of the chest. No evidence of arteritis.
== END | disposition home or self-care (01) ==
LOC: RADMRIMAIN 16:19
PROVIDERS: ATTEND Family Medicine
DX: M31.4 Aortic arch syndrome [Takayasu] (principal)
CPT/HCPCS: C8911; A9581; 71555

== ENCOUNTER → 2019-04-16 | Outpatient (CLI) | payer MEDICARE, BC ==
--- NOTE | 2019-04-17 14:00 | MM ---
Reason for exam: additional evaluation requested from prior study. Last mammogram was performed 3 years and 2 months ago. History: Family history of breast cancer in mother and breast cancer in grandmother. Benign excisional biopsy of the left breast, 1989. Physical Findings: Nurse Summary: 1cm nodule in the right breast at 2-3 o'clock (nurse TM). MG 3D Diag Mammo W/Cad THOMPSON Bilateral CC and MLO view(s) were taken. Prior study comparison: February 05, 2016, right breast MG 3d diag mammo w/cad RT. April 29, 2015, bilateral MG 3d diag mammo w/cad THOMPSON. The breast tissue is heterogeneously dense. This may lower the sensitivity of mammography. These results were verbally communicated with the patient and result sheet given to the patient on 04/16/19. ASSESSMENT: Incomplete: need additional imaging evaluation, BI-RAD 0 RECOMMENDATION: Ultrasound of the right breast.
--- NOTE | 2019-04-17 14:01 | USB ---
Reason for exam: additional evaluation requested from abnormal screening. History: Family history of breast cancer in mother and breast cancer in grandmother. Benign excisional biopsy of the left breast, 1989. US Breast Limited RT Right limited breast ultrasound including focal area of concern, retroareolar and axilla demonstrates no cystic or solid lesion seen. These results were verbally communicated with the patient and result sheet given to the patient on 04/16/19. ASSESSMENT: Probably benign, BI-RAD 3 RECOMMENDATION: Follow-up diagnostic mammogram of the right breast in 6 months.
== END | disposition home or self-care (01) ==
LOC: RADMAMWWP 09:26
PROVIDERS: ATTEND Family Medicine
DX: R92.8 Other abnormal and inconclusive findings on diagnostic imaging of breast (principal); N63.12 Unspecified lump in the right breast, upper inner quadrant; N64.52 Nipple discharge
CPT/HCPCS: 77066; 76642; G0279; 77062

== ENCOUNTER → 2021-07-26 | Outpatient (CLI) | payer MEDICARE, BC ==
--- NOTE | 2021-07-28 13:43 | MM ---
Reason for exam: additional evaluation requested from prior study. Last mammogram was performed 2 years and 3 months ago. History: Patient is postmenopausal. Family history of breast cancer in mother and breast cancer in grandmother. Benign excisional biopsy of the left breast, 1989. Physical Findings: A clinical breast exam by your physician is recommended on an annual basis and results should be correlated with mammographic findings. MG 3D Diag Mammo W/Cad THOMPSON Bilateral CC and MLO view(s) were taken. XCCL view(s) were taken of the right breast. Prior study comparison: April 16, 2019, bilateral MG 3d diag mammo w/cad THOMPSON. February 05, 2016, right breast MG 3d diag mammo w/cad RT. April 29, 2015, bilateral MG 3d diag mammo w/cad THOMPSON. There are scattered fibroglandular densities. No significant changes when compared with prior studies. ASSESSMENT: Incomplete: need additional imaging evaluation, BI-RAD 0 RECOMMENDATION: Ultrasound of both breasts. (as ordered)
--- NOTE | 2021-07-28 13:45 | USB ---
Reason for exam: additional evaluation requested from prior study. History: Patient is postmenopausal. Family history of breast cancer in mother and breast cancer in grandmother. Benign excisional biopsy of the left breast, 1989. Physical Findings: A clinical breast exam by your physician is recommended on an annual basis and results should be correlated with mammographic findings. US Breast BILAT Right complete breast ultrasound includes all four quadrants, the retroareolar region and axilla. Finding demonstrates no cystic or solid lesion seen. Left complete breast ultrasound includes all four quadrants, the retroareolar region and axilla. Finding demonstrates no cystic or solid lesion seen. ASSESSMENT: Benign, BI-RAD 2 RECOMMENDATION: Routine screening mammogram of both breasts in 1 year. Manage on a clinical basis with regard to white nipple discharge.
== END | disposition home or self-care (01) ==
LOC: RADMAMWWP 12:38
PROVIDERS: ATTEND Family Medicine
DX: N64.89 Other specified disorders of breast (principal); Z78.0 Asymptomatic menopausal state; Z80.3 Family history of malignant neoplasm of breast
CPT/HCPCS: 77066; 76641; G0279; 77062

== ENCOUNTER → 2022-08-23 | Outpatient (CLI) | payer MEDICARE, BC ==
--- NOTE | 2022-08-23 14:28 | BD ---
EXAMINATION TYPE: Axial Bone Density DATE OF EXAM: 08/23/2022 CLINICAL HISTORY: 57 years old Female. ICD-10 CODE: N95.1 POST MENOPAUSAL SYMPTOMS,M89.9 DISORDER OF BONE Height: 67.8 Weight: 198 FRAX RISK QUESTIONS: Family History (Parent hip fracture): yes, father RISK FACTORS HISTORY OF: Family History of Osteoporosis: yes, her mother and father, hip fx for father Diet low in dairy products/other sources of calcium: yes, gerd Postmenopausal woman: yes, at age 49 yrs old total hyst Take estrogen and/or progesterone medications: yes. premarin on med now Hyperparathyroidism: no Adrenal Insufficiency: no MEDICATIONS: Additional Medications: Cymbalta, statin for cholesterol, premarin, Additional History: right TKR, cholesterol, gerd, early menopause, EXAM MEASUREMENTS: Bone mineral densitometry was performed using the [employer] System. Bone mineral density as measured about the Lumbar spine is: ----- L1-L4(G/cm2): 1.074 T Score Values are as follows: ----- L1: -1.6 ----- L2: -0.5 ----- L3: -0.5 ----- L4: -1.1 ----- L1-L4: -0.9 Z Score Values are as follows: ----- L1: -1.5 ----- L2: -0.5 ----- L3: -0.5 ----- L4: -1.1 ----- L1-L4: -0.8 Bone mineral density is a baseline study for her. Bone mineral density about the R hip (g/cm2): 0.838 Bone mineral density about the L hip (g/cm2): 0.842 T Score values are as follows: -----R Neck: -0.9 -----L Neck: -1.3 -----R Total: -1.3 -----L Total: -1.3 Z Score values are as follows: -----R Neck: -0.4 -----L Neck: -0.8 -----R Total: -1.2 -----L Total: -1.2 Bone mineral density is a baseline study for her. FRAX%s: The graph provided illustrates a 12.7% chance for a major osteoporotic fx and a 0.4% chance f or the hips probability for fx in 10 years time. IMPRESSION: Osteopenia (T Score between -2.5 and -1). There is slightly increased risk of fracture and the patient may be considered for treatment. Re-Screen 2-5 years. NOTE: T-SCORE=SD OF THE YOUNG ADULT MEAN.
--- NOTE | 2022-08-24 14:51 | MM ---
Reason for Exam: Screening (asymptomatic). Last mammogram was performed 1 year(s) and 1 month(s) ago. Patient History: Menarche at age 13. First Full-Term at age 24. Hysterectomy at age 49. Postmenopausal. Patient has history of breast feeding. 1989, Benign Excisional Biopsy on the left side. Maternal grandmother had breast cancer at or over age 50. Mother had breast cancer under age 50. Risk Values: Adelina 5 year model risk: 2.8%. NCI Lifetime model risk: 17.3%. Prior Study Comparison: 02/05/2016 Right Diagnostic Mammogram, [facility]. 04/16/2019 Bilateral Diagnostic Mammogram, [facility]. 07/26/2021 Bilateral Diagnostic Mammogram, [facility]. Tissue Density: The breast tissue is heterogeneously dense. This may lower the sensitivity of mammography. Findings: Analyzed By CAD. Pattern appears symmetrical and stable. No significant interval change is evident. No suspicious groups of microcalcifications, spiculated or lobular masses, architectural distortion or other secondary signs of malignancy are mammographically apparent. Overall Assessment: Negative, BI-RAD 1 Management: Screening Mammogram of both breasts in 1 year. A negative mammogram report should not preclude additional follow up of suspicious palpable abnormalities. Patient should continue monthly self breast exam. A clinical breast exam by your physician is recommended on an annual basis and results should be correlated with mammographic findings. Electronically signed and approved by: Kai Salas D.O. Radiologis
== END | disposition home or self-care (01) ==
LOC: RADMAMWWP 11:32
PROVIDERS: ATTEND Family Medicine
DX: Z12.31 Encounter for screening mammogram for malignant neoplasm of breast (principal); M89.9 Disorder of bone, unspecified; N95.1 Menopausal and female climacteric states; M85.89 Other specified disorders of bone density and structure, multiple sites
CPT/HCPCS: 77063; 77067; 77080

== ENCOUNTER 2024-04-29 10:37 | Emergency (ER) | payer MEDICARE, OTHER ==
[2024-04-29 10:41] VITALS: TEMP 98.3
[2024-04-29] MEDS: methylPREDNISolone SOD SUCCI 125 MG/2 ML VIAL IV STA (11:27)
[2024-04-29] MEDS: HYDROmorphone 0.5 MG/0.5 ML SYRINGE IVP STA (11:28)
--- NOTE | 2024-04-29 11:33 | ED ---
General Adult HPI - General Chief complaint: Extremity Injury, Upper Stated complaint: Back pain/L arm swelling Time Seen by Provider: 04/29/24 10:53 Source: patient, RN notes reviewed Mode of arrival: ambulatory Limitations: no limitations - History of Present Illness Initial comments: This is a 58-year-old female with history of DVT, PE and factor V Leiden presenting with left upper extremity pain/swelling x 5 days. Patient states pain starts at the back of her left shoulder and radiates down through her forearm and causing hand swelling/numbness of her fingers. Describes pain (9/10) as pressure. States she went to her primary care the day following start of symptoms receiving prednisone and Toradol, with the provider stating she had a "pinched nerve". Patient endorses also receiving 5 days of prednisone and Flexeril every 8 hours for ongoing pain, which she states she has been taking. Endorses taking [place] 3 times daily for knee pain. Patient denies recent trauma to the shoulder/extremity and endorses daily use of Eliquis twice daily. Patient states pain improves slightly when supine. Denies fever, chills, dizziness, chest pain, dyspnea, abdominal pain, N/V/D. Onset/Timin -: days(s) Location: left, upper extremity Radiation: back Severity scale (1-10): 10 Quality: dull Consistency: constant Improves with: none Worsens with: none Associated Symptoms: denies other symptoms Treatments Prior to Arrival: NSAID - Related Data Home Medications Medication Instructions Recorded Confirmed Baclofen 10 mg PO HS 05/13/15 05/29/17 Cholecalciferol [Vitamin D3 (25 1,000 unit PO HS 05/13/15 05/29/17 Mcg = 1000 Iu)] Cyanocobalamin [Vitamin B-12] 1,000 mcg PO HS 05/13/15 05/29/17 Melatonin [Melatonin Tr] 30 mg PO HS 05/13/15 05/29/17 Orphenadrine [Norflex] 100 mg PO Q12H 05/13/15 05/29/17 Topiramate [Topamax] 200 mg PO BID 05/13/15 05/29/17 oxyCODONE-APAP 7.5-325MG [Percocet 1 tab PO Q6HR PRN 05/13/15 05/29/17 7.5-325 mg] SUMAtriptan succinate [Imitrex] 100 mg PO DAILY PRN 09/04/15 05/29/17 Buta/APAP/Caf/Cod 27-589-20-30 1 cap PO BID PRN 01/20/16 05/29/17 [Fioricet w/Cod 16-937-77-30MG] Ibuprofen [Motrin] 800 mg PO BID PRN 01/20/16 05/29/17 Apixaban [Eliquis] 2.5 mg PO BID 06/20/16 05/29/17 Pravastatin Sodium [Pravachol] 80 mg PO HS 06/20/16 05/29/17 clonazePAM [KlonoPIN] 3 mg PO HS 06/20/16 05/29/17 Omeprazole [PriLOSEC] 20 mg PO AC-BRKFST 02/07/17 05/29/17 Propranolol HCl [Inderal] 60 mg PO BID 02/07/17 05/29/17 Enoxaparin [Lovenox] 60 mg SQ DAILY 05/23/17 05/29/17 Orphenadrine Citrate [Orphenadrine 100 mg BID PRN 05/29/17 05/29/17 Citrate ER] Allergies Allergy/AdvReac Type Severity Reaction Status Date / Time Penicillins Allergy Intermediate Rash/Hives Verified 05/29/17 12:51 Review of Systems ROS Statement: Those systems with pertinent positive or pertinent negative responses have been documented in the HPI. ROS Other: All systems not noted in ROS Statement are negative. Past Medical History Past Medical History: Blood Disorder, Deep Vein Thrombosis (DVT), Fibromyalgia, GERD/Reflux, Hyperlipidemia, Osteoarthritis (OA), Pulmonary Embolus (PE) Additional Past Medical History / Comment(s): migraines, Factor 5 Leiden, barretts esophagus, IBS-constipation/diarrhea, History of Any Multi-Drug Resistant Organisms: None Reported Past Surgical History: Adenoidectomy, Appendectomy, Cholecystectomy, Joint Replacement, Orthopedic Surgery, Tonsillectomy, Tubal Ligation, Uterine Ablation Additional Past Surgical History / Comment(s): shelby fundoplication "wrap", rt knee replacement, left breast lumpectomy, cysts removed from ovaries, mult esvin knee surgeries, Past Anesthesia/Blood Transfusion Reactions: No Reported Reaction Past Psychological History: No Psychological Hx Reported Smoking Status: Never smoker Past Alcohol Use History: None Reported Past Drug Use History: None Reported - Past Family History Mother History Unknown: Yes Family Medical History: Diabetes Mellitus General Exam Limitations: no limitations Course Vital Signs 04/29/24 04/29/24 04/29/24 10:39 11:27 12:17 Temperature 98.3 F Pulse Rate 122 H 96 83 Respiratory 18 20 16 Rate Blood Pressure 130/83 152/115 125/99 O2 Sat by Pulse 99 99 99 Oximetry Medical Decision Making - Medical Decision Making Was pt. sent in by a medical professional or institution (, PA, [employer], urgent care, hospital, or jail...) When possible be specific @ -[No] Did you speak to anyone other than the patient for history (EMS, parent, family, police, friend...)? What history was obtained from this source @ -[No] Did you review nursing and triage notes (agree or disagree)? Why? @ -[I reviewed and agree with nursing and triage notes] Were old charts reviewed (outside hosp., previous admission, EMS record, old EKG, old radiological studies, urgent care reports/EKG's, jail records)? Report findings @ -[No old charts were reviewed] Differential Diagnosis (chest pain, altered mental status, abdominal pain women, abdominal pain men, vaginal bleeding, weakness, fever, dyspnea, syncope, headache, dizziness, GI bleed, back pain, seizure, CVA, palpatations, mental health, musculoskeletal)? @ -AMI, UE DVT, cervical stenosis, epicondylitis, de Quervain's tenosynovitis, carpal tunnel, this is not an exhaustive list EKG interpreted by me (3pts min.). @ -Sinus rhythm without ST changes or T wave inversion. Ventricular rate 78 bpm, DENISE 163 ms, QRS duration 72 ms, QTc 390 ms. X-rays interpreted by me (1pt min.). @ -[None done] CT interpreted by me (1pt min.). @ -[None done] U/S interpreted by me (1pt. min.). @ -[None done] What testing was considered but not performed or refused? (CT, X-rays, U/S, labs)? Why? @ -[None] What meds were considered but not given or refused? Why? @ -[None] Did you discuss the management of the patient with other professionals (professionals i.e. , PA, [employer], lab, RT, psych nurse, social services analyst, skein straightener, teacher, property disposal officer, case management social worker)? Give summary @ -[No] Was smoking cessation discussed for >3mins.? @ -[No] Was critical care preformed (if so, how long)? @ -[No] Were there social determinants of health that impacted care today? How? (Homelessness, low income, unemployed, alcoholism, drug addiction, transp ortation, low edu. Level, literacy, decrease access to med. care, usp, rehab)? @ -[No] Was there de-escalation of care discussed even if they declined (Discuss DNR or withdrawal of care, Hospice)? DNR status @ -[No] What co-morbidities impacted this encounter? (DM, HTN, Smoking, COPD, CAD, Cancer, CVA, ARF, Chemo, Hep., AIDS, mental health diagnosis, sleep apnea, morbid obesity)? @ -[None] Was patient admitted / discharged? Hospital course, mention meds given and route, prescriptions, significant lab abnormalities, going to OR and other pertinent info. @ -[hospital course] Undiagnosed new problem with uncertain prognosis? @ -[No] Drug Therapy requiring intensive monitoring for toxicity (Heparin, Nitro, Insulin, Cardizem)? @ -[No] Were any procedures done? @ -[No] Diagnosis/symptom? @ -[default] Acute, or Chronic, or Acute on Chronic? @ -Acute Uncomplicated (without systemic symptoms) or Complicated (systemic symptoms)? @ -Complicated Side effects of treatment? @ -[No] Exacerbation, Progression, or Severe Exacerbation? @ -[No] Poses a threat to life or bodily function? How? (Chest pain, USA, NC, pneumonia, PE, COPD, DKA, ARF, appy, cholecystitis, CVA, Diverticulitis, Homicidal, [place] icidal, threat to staff... and all critical care pts) @ -[No] - Lab Data Result diagrams: 04/29/24 11:15 04/29/24 11:15 Lab Results 04/29/24 04/29/24 04/29/24 Range/Units 11:15 11:15 11:15 WBC 10.8 H (3.8-10.6) k/uL RBC 4.51 (3.80-5.40) m/uL Hgb 14.4 (11.4-16.0) gm/dL Hct 43.8 (34.0-46.0) % MCV 97.3 (80.0-100.0) fL MCH 31.9 (25.0-35.0) pg MCHC 32.7 (31.0-37.0) g/dL RDW 12.7 (11.5-15.5) % Plt Count 318 (150-450) k/uL MPV 8.3 Neutrophils % 60 % Lymphocytes % 33 % Monocytes % 4 % Eosinophils % 1 % Basophils % 0 % Neutrophils # 6.5 (1.3-7.7) k/uL Lymphocytes # 3.6 (1.0-4.8) k/uL Monocytes # 0.4 (0-1.0) k/uL Eosinophils # 0.1 (0-0.7) k/uL Basophils # 0.0 (0-0.2) k/uL PT 10.2 (10.0-12.5) sec INR 0.9 (<1.2) APTT 21.5 L (22.0-30.0) sec Sodium 139 (137-145) mmol/L Potassium 3.9 (3.5-5.1) mmol/L Chloride 105 (98-107) mmol/L Carbon Dioxide 29 (22-30) mmol/L Anion Gap 5 mmol/L BUN 18 H (7-17) mg/dL Creatinine 0.73 (0.52-1.04) mg/dL Est GFR (CKD-EPI)AfAm >90 (>60 ml/min/1.73 sqM) Est GFR (CKD-EPI)NonAf >90 (>60 ml/min/1.73 sqM) Glucose 126 H (74-99) mg/dL Calcium 9.7 (8.4-10.2) mg/dL Total Bilirubin 0.6 (0.2-1.3) mg/dL AST 20 (14-36) U/L ALT 22 (4-34) U/L Alkaline Phosphatase 72 (38-126) U/L Troponin I (0.000-0.034) ng/mL Total Protein 7.1 (6.3-8.2) g/dL Albumin 4.4 (3.5-5.0) g/dL 04/29/24 Range/Units 11:15 WBC (3.8-10.6) k/uL RBC (3.80-5.40) m/uL Hgb (11.4-16.0) gm/dL Hct (34.0-46.0) % MCV (80.0-100.0) fL MCH (25.0-35.0) pg MCHC (31.0-37.0) g/dL RDW (11.5-15.5) % Plt Count (150-450) k/uL MPV Neutrophils % % Lymphocytes % % Monocytes % % Eosinophils % % Basophils % % Neutrophils # (1.3-7.7) k/uL Lymphocytes # (1.0-4.8) k/uL Monocytes # (0-1.0) k/uL Eosinophils # (0-0.7) k/uL Basophils # (0-0.2) k/uL PT (10.0-12.5) sec INR (<1.2) APTT (22.0-30.0) sec Sodium (137-145) mmol/L Potassium (3.5-5.1) mmol/L Chloride (98-107) mmol/L Carbon Dioxide (22-30) mmol/L Anion Gap mmol/L BUN (7-17) mg/dL Creatinine (0.52-1.04) mg/dL Est GFR (CKD-EPI)AfAm (>60 ml/min/1.73 sqM) Est GFR (CKD-EPI)NonAf (>60 ml/min/1.73 sqM) Glucose (74-99) mg/dL Calcium (8.4-10.2) mg/dL Total Bilirubin (0.2-1.3) mg/dL AST (14-36) U/L ALT (4-34) U/L Alkaline Phosphatase (38-126) U/L Troponin I <0.012 (0.000-0.034) ng/mL Total Protein (6.3-8.2) g/dL Albumin (3.5-5.0) g/dL Disposition Clinical Impression: Cervical radiculopathy Disposition: HOME SELF-CARE Condition: Good Instructions (If sedation given, give patient instructions): Cervical Radiculopathy (ED) Is patient prescribed a controlled substance at d/c from ED?: No Referrals: Jia Buchanan MD [Primary Care Provider] - 1-2 days Time of Disposition: 12:31
[2024-04-29 11:47] LABS: ALT 22 U/L (4-34); AST 20 U/L (14-36); African American GFR (CKD) >90 (>60 ml/min/1.73 sqM); Albumin 4.4 g/dL (3.5-5.0); Alkaline Phosphatase 72 U/L (38-126); Anion Gap 5 mmol/L; Blood Urea Nitrogen 18 mg/dL (7-17); Calcium 9.7 mg/dL (8.4-10.2); Carbon Dioxide 29 mmol/L (22-30); Chloride 105 mmol/L (98-107); Glucose 126 mg/dL (74-99); Non-African American GFR(CKD) >90 (>60 ml/min/1.73 sqM); Potassium 3.9 mmol/L (3.5-5.1); Sodium 139 mmol/L (137-145); Total Bilirubin 0.6 mg/dL (0.2-1.3); Total Protein 7.1 g/dL (6.3-8.2)
[2024-04-29 11:52] LABS: Basophils % (A) 0 %; Eosinophils # (A) 0.1 k/uL (0-0.7); Eosinophils % (A) 1 %; HCT 43.8 % (34.0-46.0); HGB 14.4 gm/dL (11.4-16.0); Lymphocytes # (A) 3.6 k/uL (1.0-4.8); Lymphocytes % (A) 33 %; MCH 31.9 pg (25.0-35.0); MCHC 32.7 g/dL (31.0-37.0); MCV 97.3 fL (80.0-100.0); Mean Platelet Volume 8.3; Monocytes # (A) 0.4 k/uL (0-1.0); Monocytes % (A) 4 %; Neutrophils # (A) 6.5 k/uL (1.3-7.7); Neutrophils % (A) 60 %; Platelet Count 318 k/uL (150-450); RBC 4.51 m/uL (3.80-5.40); RDW 12.7 % (11.5-15.5); WBC 10.8 k/uL (3.8-10.6)
[2024-04-29 11:55] LABS: INR 0.9 (<1.2); Prothrombin Time 10.2 sec (10.0-12.5)
[2024-04-29 12:02] LABS: Partial Thromboplastin Time 21.5 sec (22.0-30.0)
--- NOTE | 2024-04-29 12:08 | US ---
EXAMINATION TYPE: US venous doppler duplex UE LT DATE OF EXAM: 04/29/2024 COMPARISON: NONE CLINICAL INDICATION: Female, 58 years old with history of s/o LUE pain, edema - history of DVT/PE; No injury, spasms to left arm with hand swelling, h/o Factor 5 TECHNIQUE: Grayscale, color Doppler and spectral Doppler imaging of the upper extremity. SIDE PERFORMED: Left FINDINGS: Left Arm: Negative for DVT Grayscale, color doppler, spectral doppler imaging performed of the deep veins of the upper extremiti es. IMPRESSION: Negative for DVT [facility], , 04/29/2024 12:06 PM
[2024-04-29 12:18] VITALS: BP 125/99; PULSE 83; RESP 16
[2024-04-29] MEDS: HYDROmorphone 1 MG/ML 1 ML SYRINGE IVP STA (12:18)
== END 2024-04-29 12:41 | disposition home or self-care (01) ==
LOC: EC 10:37
DX: M54.12 Radiculopathy, cervical region (principal); Z88.0 Allergy status to penicillin; Z86.711 Personal history of pulmonary embolism; Z86.718 Personal history of other venous thrombosis and embolism; D68.51 Activated protein C resistance; M79.602 Pain in left arm
CPT/HCPCS: 36415; 93005; 80053; 84484; 85025; 85610; 85730; 93971; 99284; 96374; 96375; 96376; J1171 ×2; J2919

== ENCOUNTER → 2024-05-22 | Outpatient (CLI) | payer MEDICARE, OTHER ==
--- NOTE | 2024-05-22 19:39 | MR ---
EXAMINATION TYPE: MR cervical spine wo con DATE OF EXAM: 05/22/2024 5:34 PM COMPARISON: None. CLINICAL INDICATION: Female, 58 years old with history of M50.023 CERVICAL DISC DISORDER WITH MYELOPA THY; PHH, Myelopathy at C6/C7, Neck pain into left arm/hand since Mar 2024, Headaches TECHNIQUE: Multi planar, multi sequence imaging was performed utilizing: T1-weighted, T2-weighted, an d turbo inversion recovery imaging of the cervical spine. IV Contrast: mL (None, if empty) FINDINGS: Alignment: The cervical vertebral bodies have preserved heights. Alignment is within normal limits gi stephen patient positioning. Bones: Osteophytes and disc space narrowing most pronounced at the C5-C7 vertebral levels. Cord: The spinal cord is unremarkable with regards to their signal intensity and morphology. Discs: Intervertebral disc signal is maintained. C2-C3: No significant disc pathology. The spinal canal is patent. No neural foraminal stenosis. C3-C4: No significant disc pathology. The spinal canal is patent. No neural foraminal stenosis. C4-C5: No significant disc pathology. The spinal canal is patent. No neural foraminal stenosis. C5-C6: No significant disc pathology. The spinal canal is patent. No neural foraminal stenosis. C6-C7: No significant disc pathology. The spinal canal is patent. No neural foraminal stenosis. C7-T1: No significant disc pathology. The spinal canal is patent. No neural foraminal stenosis. Other: None. IMPRESSION: 1. No evidence for disc herniation or significant spinal canal stenosis. 2. Minimal disc degeneration with associated osteoarthritic changes. [facility], , 05/22/2024 7:36 PM
== END | disposition home or self-care (01) ==
LOC: RADMRIMAIN 16:23
PROVIDERS: ATTEND Family Medicine
DX: M50.023 Cervical disc disorder at C6-C7 level with myelopathy (principal)
CPT/HCPCS: 72141